=== PATIENT | female | born 1955 | race Caucasian/White ===

== ENCOUNTER 2022-07-17 17:28 | Emergency (ER) | payer OTHER, MEDICARE ==
[~2022-07-17] VITALS: Ht 157.5 cm; Wt 74.8 kg
[2022-07-17 18:47] VITALS: BP_SYST 130
--- NOTE | 2022-07-17 19:22 | NUR ---
ER in triage examining patient.
[2022-07-17] MEDS ORDERED: HYDR-3917 PO (21:05)
[2022-07-17] MEDS ORDERED: IBUP-1969 PO (21:05)
[2022-07-17 22:06] VITALS: BP_SYST 129
--- NOTE | 2022-07-17 22:06 | NUR ---
Patient given written and verbal discharge instructions and verbalizes understanding. ER MD discussed with patient the results care provided. Patient in stable condition. Rx of [place] and Ibuprofen sent to pharmacy of choice by ER MD. Patient educated on pain management and to follow up with PMD. Opportunity for questions provided and answered.
== END 2022-07-17 22:06 | disposition home or self-care (01) ==
LOC: SED 17:28
DX: S33.5XXA Sprain of ligaments of lumbar spine, initial encounter (principal); S20.211A Contusion of right front wall of thorax, initial encounter; S30.0XXA Contusion of lower back and pelvis, initial encounter; Z79.899 Other long term (current) drug therapy; W14.XXXA Fall from tree, initial encounter; Y93.89 Activity, other specified; Y92.89 Other specified places as the place of occurrence of the external cause; Y99.8 Other external cause status
CPT/HCPCS: 71045; 72100-TC; 72220-TC; 93005; 99284